=== PATIENT | male | born 1935 | race Caucasian/White ===

== ENCOUNTER 2020-12-22 09:32 | Emergency (ER) | payer MEDICARE, OTHER ==
[~2020-12-22] VITALS: Ht 167.6 cm; Wt 93.0 kg
[~2020-12-22 09:32] MED LIST: CALCIUM CITRAT1 EAC3 PO; CRANBERRY500 M1 PO; GABAPENTIN300 MG PO; LEVOTHYROXINE50 MCG PO; LOSARTAN POTASS50 MG PO; MECLIZINE HCL25 MG PO; NABUMETONE500 MG PO; OMEPRAZOLE20 MG PO; VICODIN 5-3001 EACH PO
--- OUTSIDE RECORDS SUMMARY | 2020-12-22 11:22 | XMS ---
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 Gladys has no Care Guidelines for this patient. Lynda VISIT COUNT (12 MO.) 1 AYSHA Calderón TOTAL 1 NOTE: Visits indicate total known visits. ED/C VISIT TRACKING (12 MO.) 12/22/2020 09:33 [facility] [place] TYPE: Emergency COMPLAINT: - CHEST PAIN INPATIENT VISIT TRACKING (12 MO.) No inpatient visits to display in this time frame [id number]
--- NOTE | 2020-12-22 16:37 | EKG ---
[facility] [address] [place] [address] Signed Sinus rhythm with marked sinus arrhythmia with 1st degree AV block Left axis deviation Left ventricular hypertrophy with repolarization abnormality Abnormal ECG No previous ECGs available Confirmed by JAYJAY OCHOA MD ([id number] on 12/22/2020 4:37:06 PM Electronically Signed By: JAYJAY OCHOA MD 12/22/20 1637 PATIENT NAME: KALYANNIKOS Electrocardiogram DATE OF : 37 PHYSICIAN: JAYJAY OCHOA MD REPORT #: [id number] REPORT IS CONFIDENTIAL AND NOT TO BE RELEASED WITHOUT AUTHORIZATION
== END 2020-12-22 12:37 | disposition home or self-care (01) ==
LOC: ED 09:32
DX: R07.89 Other chest pain (principal); I10 Essential (primary) hypertension; Z87.891 Personal history of nicotine dependence; Z85.46 Personal history of malignant neoplasm of prostate; Z79.899 Other long term (current) drug therapy
CPT/HCPCS: 71045; 80053; 84484; 85025; 93005; 93010; 99285-25

== ENCOUNTER 2021-03-28 13:45 | Emergency (ER) | payer MEDICARE, OTHER ==
[~2021-03-28] VITALS: Ht 167.6 cm; Wt 84.4 kg
--- OUTSIDE RECORDS SUMMARY | 2021-03-28 13:48 | XMS ---
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 [place] - Has Care Guidelines CARE PROVIDERS [facility] 12/23/2020-[facility] PHONE: [phone] Gladys has no Care Guidelines for this patient. Care History Medical/Surgical 12/23/2020 [facility] PATIENT IS [facility] ELIGIBLE, \T\middot;\T\nbsp; PLEASE REFER PATIENT TO [facility] FOR NON EMERGENT MEDICAL NEEDS. \T\middot;\T\nbsp; [facility] CAN SEE PATIENTS SAME DAY FOR APTS IF PATIENT CALLS FIRST THING IN THE MORNING. E.D. VISIT COUNT (12 MO.) 2 [facility] TOTAL 2 NOTE: Visits indicate total known visits. ED/UCC VISIT TRACKING (12 MO.) 03/28/2021 13:47 [facility] TYPE: Emergency COMPLAINT: - FALL, HEAD/FACE INJURY 12/22/2020 09:33 [facility] TYPE: Emergency COMPLAINT: - CHEST PAIN DIAGNOSES: - Other chest pain - Essential (primary) hypertension - Personal history of nicotine dependence - Other alf (current) drug therapy - Personal history of malignant neoplasm of prostate INPATIENT VISIT TRACKING (12 MO.) No inpatient visits to display in this time frame [email or web address]
== END 2021-03-28 17:25 | disposition home or self-care (01) ==
LOC: ED 13:45
PROC: 0HQ1XZZ Repair Face Skin, External Approach (ICD-10-PCS; principal; 2021-03-28)
PROC: 0HQ0XZZ Repair Scalp Skin, External Approach (ICD-10-PCS; 2021-03-28)
DX: S01.01XA Laceration without foreign body of scalp, initial encounter (principal); S01.21XA Laceration without foreign body of nose, initial encounter; W22.8XXA Striking against or struck by other objects, initial encounter; I10 Essential (primary) hypertension; Z79.899 Other long term (current) drug therapy; Z23 Encounter for immunization; Z85.46 Personal history of malignant neoplasm of prostate
CPT/HCPCS: 12004; 70450; 90471; 90715; 99283-25

== ENCOUNTER 2023-11-21 12:07 | Emergency (ER) | payer MEDICARE, OTHER ==
[~2023-11-21] VITALS: Ht 167.6 cm; Wt 78.0 kg
[2023-11-21] MEDS ORDERED: HYDROCHLOROTH12.5 MG PO (12:32)
[2023-11-21] MEDS ORDERED: LEVOTHYROXINE100 MC2 PO (12:32)
[2023-11-21 12:53] LABS: BASOPHILS 0.2 % (0-2); HEMATOCRIT 40.3 % (35.0-50.0); HEMOGLOBIN 13.4 g/dL (12.0-18.0); LYMPHOCYTES 2.5 % (24-44); MCHC 33.2 g/dl (30-36); MCV 87.3 fl (81-99); MONOCYTES 5.2 % (0-12); NEUTROPHILS 92.1 % (39-80); PLATELET COUNT 240 K/uL (140-440); RBC 4.62 M/ul (4.3-5.7); RDW 16.3 (10.5-15.0)
[2023-11-21 13:07] LABS: ALBUMIN 3.1 g/dL (3.4-5.0); ALBUMIN/GLOBULIN RATIO 0.74 (1.1-2.4); ANION GAP 13.9 (7-21); BILIRUBIN, TOTAL 1.1 ng/dL (0.2-1.0); BUN/CREATININE RATIO 18.78 (6.0-28.6); CALCIUM 8.5 mg/dL (8.5-10.1); CREATININE, SERUM 1.65 mg/dL (0.70-1.30); POTASSIUM 3.9 mmol/L (3.5-5.1); PROTEIN, TOTAL 7.3 g/dL (6.4-8.2)
[2023-11-21 13:28] LABS: LACTIC ACID, BLOOD 1.5 mmol/L (0.4-2.0)
[2023-11-21 13:41] LABS: BILIRUBIN, URINE NEGATIVE (negative); BLOOD/HGB, URINE MODERATE (Negative); KETONE, URINE NEGATIVE (Negative); LEUK ESTERASE, URINE MODERATE (negative); NITRITE, URINE NEGATIVE (negative); PH, URINE 6.5 (5-7)
[2023-11-21 13:46] LABS: WHITE BLOOD CELLS, URINE 21-40 /HPF (0-5)
[2023-11-21 13:47] LABS: CASTS, URINE NONE SEEN \\lpf; CRYSTALS, URINE NONE SEEN (0-1+); EPITHELIAL CELLS, URINE 0 /lpf (0-1+)
[2023-11-21 13:48] LABS: BACTERIA, URINE RARE /hpf (negative); COLLECTION TYPE, URINE CLEAN CATCH; REFLEX CULTURE, URINE Yes (No)
[2023-11-21] MEDS ORDERED: CEFTRIAXONE/SODIUM CHLORIDE 1 GM/100 ML PIGGYBACK IV ONE (14:15)
[2023-11-21] MEDS ORDERED: CEPHALEXIN500 MG PO (14:39)
[2023-11-21 15:04] VITALS: BP 104/59
== END 2023-11-21 15:04 | disposition home or self-care (01) ==
LOC: ED 12:07
PROVIDERS: Emergency Medicine
DX: N39.0 Urinary tract infection, site not specified (principal); I10 Essential (primary) hypertension; Z79.899 Other long term (current) drug therapy
CPT/HCPCS: 36415; 71045; 80053; 81001; 83605; 85025; 85060; 96365; 99284-25; J0696